=== PATIENT | male | born 1960 | race Caucasian/White ===

== ENCOUNTER → 2020-10-28 | Outpatient (CLI) | payer BC | LOC: HEART CORB 11:29 | DX: R53.83 Other fatigue (principal); R00.1 Bradycardia, unspecified; R07.9 Chest pain, unspecified ==

== ENCOUNTER → 2021-07-29 | Outpatient (CLI) | payer OTHER | LOC: KOH-I 13:43 | DX: S82.831A Other fracture of upper and lower end of right fibula, initial encounter for closed fracture (principal); S93.411A Sprain of calcaneofibular ligament of right ankle, initial encounter; M25.471 Effusion, right ankle; W19.XXXA Unspecified fall, initial encounter | CPT/HCPCS: 73721 ==